=== PATIENT | male | born 1950 | race African-American/Black ===

== ENCOUNTER 2020-03-23 14:25 | Outpatient (CLI) | payer OTHER, SELFPAY ==
--- NOTE | ~2020-03-23 | XR_ITS ---
EXAMINATION: XR chest 2V EXAM DATE: 03/23/2020 14:51 INDICATION: Cough for one month. Chest pain. TECHNIQUE: Frontal and lateral projections of the chest obtained and reviewed. There is no prior dragan dy for comparison. FINDINGS: The lungs are clear. There are no pleural effusions. The cardiomediastinal silhouette is within normal limits. There is no pneumothorax suspected. The bones and soft tissues are unremarkab le. IMPRESSION: No acute cardiopulmonary findings. Reviewed, dictated and finalized at location A.
== END 2020-03-23 14:26 | disposition home or self-care (01) ==
LOC: ANHIMG 14:28
PROVIDERS: PCP Family Medicine; Visit Provider Family Medicine
DX: R07.9 Chest pain, unspecified (principal)
CPT/HCPCS: 71046

== ENCOUNTER 2020-11-12 14:27 | Outpatient (CLI) | payer OTHER, SELFPAY ==
--- NOTE | 2021-01-13 14:53 | WPDPFTINT ---
PFT Interpretation PFT Interpretation: DOS: 11/12/2020 REQUESTING: Dr Sunday Pierce REASON FOR TESTING: shortness of breath PULMONARY FUNCTION TESTS Results are reproducible and reliable Spirometry: FEV1 is 94% predicted, 3.07 L; FVC is 88%; FEV1/FVC is 72%, all normal. The JKV06-24% is 74% which is more borderline decreased. After bronchodilator therapy there is a 34% increase in the FEF 25-75% which is significant. Lung volumes: TLC 84% normal. RV is 67% normal. RV/TLC is 30% normal. Airway resistance 135% mildly increased. Diffusion: DLCO 86% normal. Flow volume loop: Normal. IMPRESSION: This Study shows mild obstructive ventilatory defect in the small airways which is responsive to bronchodilator. Normal lung volumes and diffusion. in the proper clinical setting this pattern may be compatible with asthma. Edith Godoy MD
== END 2020-11-12 14:28 | disposition home or self-care (01) ==
PROVIDERS: PCP Family Medicine; Visit Provider Family Medicine
DX: R06.09 Other forms of dyspnea (principal); R07.89 Other chest pain
CPT/HCPCS: 94060; 94726; 94729

== ENCOUNTER 2021-08-19 00:41 | Day surgery (SDC) | payer OTHER, SELFPAY ==
[2021-08-05 14:45] VITALS: BMI 29.3
[2021-08-19 06:36] VITALS: BP 127/84; PULSE 82; RESP 18; TEMP 35.9; O2SAT 100; BMI 29.1
--- NOTE | 2021-08-19 06:58 | PM.HPGS ---
History of Present Illness History of Present Illness Consent: Risks, benefits, and alternatives have been discussed and questions answered. Patient agrees to proceed with procedure. Chief complaint: hx of colon polyps, neoplasm screening Narrative: Mahendra Hagan is a 70 year old male who is here for colon cancer screening. He had a polyp removed about 6 years ago Review of Systems Review of Systems: All systems reviewed & are unremarkable except as noted in HPI and below PMFSH Past Medical History Medical History Erectile dysfunction HTN (hypertension) Surgical History Surgical History History of appendectomy Family History Family History Father Hypertension Social History Social History Smoking status: Never smoker Second hand tobacco smoke exposure: No Alcohol intake: current Drinks per week: 7 Alcohol use details: 1 glass wine w/ dinner Substance use: never Substance use type: does not use Living arrangements: with family Gender identity (if verbalized by the patient): Male Sexual Orientation (if Verbalized by the Patient): Straight or Heterosexual Spiritual care concerns: No Meds Home Medications and Allergies Home Medications Medication Instructions Recorded Confirmed Type amlodipine 5 mg tablet 5 mg PO DAILY #30 tablet 03/12/21 08/05/21 Rx tadalafil 20 mg tablet 20 mg PO DAILY PRN #6 tablet 03/16/21 03/16/21 Rx Allergies Allergy/AdvReac Type Severity Reaction Status Date / Time codeine AdvReac Severe PASSED OUT Verified 08/19/21 06:53 Vital Signs Vital Signs - 24 hr 08/19/21 06:36 Temperature 35.9 C L Pulse Rate 82 Respiratory Rate 18 Blood Pressure 127/84 Pulse Oximetry 100 Exam Const: General: alert Orientation/consciousness: patient oriented x3 Resp: Auscultation: clear to auscultation bilaterally Cardio: Rhythm: regular rhythm GI: GI Palp: Yes Soft to palpation and No Tenderness to palpation present (GI) Neuro: General: patient oriented x3 Assessment and Plan Assessment and plan (1) Colon cancer screening: Code(s): Z12.11 - Encounter for screening for malignant neoplasm of colon Status: Acute Assessment and Plan: Colonoscopy with possible biopsy or polypectomy or cautery or injection of substances.
[2021-08-19] MEDS: LACTATED RINGERS 1,000 ML 150 ML IV CONT (07:23)
--- NOTE | 2021-08-19 07:24 | WPDANESEPPF ---
Anes - Initial Pre Proc Eval Procedure: Operation Date: 08/19/21 08:00 Proposed Procedures p Screening Colonoscopy - Carmelo Guillen MD Date/Time: 08/19/21 07:24 Surgeon: Carmelo Guillen MD Pre Op Diagnosis: hx of colon polyps, neoplasm screening Patient Data Age: 70 Gender: M Height: 1.85 m Weight: 100.1 kg Last Vital Signs Temp 96.7 F L 08/19/21 06:36 Pulse 82 08/19/21 06:36 Resp 18 08/19/21 06:36 BP 127/84 08/19/21 06:36 Pulse Ox 100 08/19/21 06:36 Allergies Allergy/AdvReac Type Severity Reaction Status Date / Time codeine AdvReac Severe PASSED OUT Verified 08/19/21 06:53 Home Medications Medication Instructions Recorded Confirmed Type amlodipine 5 mg tablet 5 mg PO DAILY #30 tablet 03/12/21 08/05/21 Rx tadalafil 20 mg tablet 20 mg PO DAILY PRN #6 tablet 03/16/21 03/16/21 Rx Patient hx anesthesia problems: none Family hx anesthesia problems: none PMFSH Past Medical History Medical History Erectile dysfunction HTN (hypertension) Surgical History Surgical History History of appendectomy Family History Family History Father Hypertension Social History Social History Smoking status: Never smoker Second hand tobacco smoke exposure: No Alcohol intake: current Drinks per week: 7 Alcohol use details: 1 glass wine w/ dinner Substance use: never Substance use type: does not use Living arrangements: with family Gender identity (if verbalized by the patient): Male Sexual Orientation (if Verbalized by the Patient): Straight or Heterosexual Spiritual care concerns: No Anes - Eval Final PreProcedure Day of Procedure 08/19/21 07:24 Patient weight: overweight Heart: regular rate and rhythm Lungs: clear to auscultation Airway: Mallampati scale Neurological: alert and oriented Last oral intake: >/= 8 hours ASA classification: II Emergent: no Anesthetic plan: proceed Anesthesia type and monitoring: general GIVS and standard monitoring Informed Consent: The patient's anesthetic plan and its attendant risks and benefits were discussed with the patient/family/POA. Questions were solicited and answers provided to the satisfaction of the patient/family/POA.
[2021-08-19 08:19] VITALS: BP 82/67; PULSE 70; RESP 18; O2SAT 97
[2021-08-19 08:29] VITALS: BP 109/71; PULSE 74; RESP 18; O2SAT 98
[2021-08-19 08:39] VITALS: BP 128/88; PULSE 70; RESP 18; O2SAT 100
== END 2021-08-19 09:02 | disposition home or self-care (01) ==
PROVIDERS: PCP Family Medicine; Visit Provider Internal Medicine Gastroenterology
PROC: 0DJD8ZZ Inspection of Lower Intestinal Tract, Via Natural or Artificial Opening Endoscopic (ICD-10-PCS; CPT 45378; principal; 2021-08-19 08:00)
DX: Z12.11 Encounter for screening for malignant neoplasm of colon (principal); D12.5 Benign neoplasm of sigmoid colon; D12.0 Benign neoplasm of cecum; K57.30 Diverticulosis of large intestine without perforation or abscess without bleeding; I10 Essential (primary) hypertension
CPT/HCPCS: 45385; 45380; 88305; J2001; J2704; J7120

== ENCOUNTER 2023-07-11 13:29 | Emergency (ER) | payer OTHER, SELFPAY ==
[2023-07-11] VITALS (21 sets, daily range): BP systolic 152–185; BP diastolic 98–119; PULSE 59–86; RESP 12–28; TEMP 36.6; O2SAT 84–100
--- NOTE | ~2023-07-11 | XR_ITS ---
EXAMINATION: XR chest 2V DATE: 07/11/2023 14:01 INDICATION: Shortness of breath and chest tightness TECHNIQUE: PA and lateral views of the chest were obtained. COMPARISON: Chest radiograph dated 03/23/2020 FINDINGS: Unchanged mild linear discoid atelectasis/scarring at the bilateral costophrenic angles. No other air space opacities, pulmonary edema, pleural effusion or pneumothorax. The cardiomediastinal silhouette is normal. Mild thoracolumbar dextrocurvature and moderate thoracic spondylosis. IMPRESSION: 1. No acute cardiopulmonary disease. Reviewed, dictated and finalized at location A.
--- NOTE | 2023-07-11 13:43 | ECG_ITS ---
Measurements Intervals [place] Rate: 75 P: 24 IN: 193 QRS: -34 QRSD: 100 T: 4 QT: 362 QTc: 404 Interpretive Statements SINUS RHYTHM MARKED LEFT AXIS DEVIATION [QRS AXIS < -30] PATTERN CONSISTENT WITH PULMONARY DISEASE MODERATE VOLTAGE CRITERIA FOR LVH, CONSIDER NORMAL VARIANT [MEETS CRITERIA IN ONE OF: R(aVL), S(V1), R(V5), R(V5/V6)+S(V1)] NO PREVIOUS ECG AVAILABLE FOR COMPARISON Electronically Signed On 07-11-2023 14:42:17 CDT by Eusebio Lew M.D.
--- NOTE | 2023-07-11 13:47 | ED.GENADULT ---
[facility] - General Adult General Chief complaint: Chest Pain Stated complaint: resolved cp, sob Time Seen by Provider: 07/11/23 13:42 Source: patient Mode of arrival: EMS Limitations: no limitations History of Present Illness HPI narrative: This is a 72-year-old male who presents to the ED via EMS with chief complaint of chest pain onset earlier today after walking up and down the stairs in his home. He states he started to have a little bit of central chest pain and shortness of breath at that time. He also reports bilateral hand take and mouth tingling. He called EMS who recommended he come to the emergency department to be evaluated, however he said he states shortly after being seen by the EMS personnel his symptoms started to resolve. He states he is now currently largely symptom-free, however he still feels a little bit of pressure in the chest. Endorses associated nausea at the time that has also since resolved. Denies LOC, vomiting. Denies fevers, chills, cough, recent illness, abdominal pain, diarrhea. Related Data Home Medications Medication Instructions Recorded Confirmed sildenafil 50 mg tablet 50 mg PO DAILY PRN 12/16/21 03/22/23 Allergies Allergy/AdvReac Type Severity Reaction Status Date / Time codeine AdvReac Severe PASSED OUT Verified 03/22/23 09:19 Review of Systems Review of Systems: All systems as dictated in [facility] Past Medical History Medical History Erectile dysfunction HTN (hypertension) Surgical History Surgical History History of appendectomy Family History Family History Father Hypertension Social History Social History Smoking status: Never smoker Second hand tobacco smoke exposure: No Alcohol intake: current Drinks per week: 7 Alcohol use details: 1 glass wine w/ dinner Substance use: never Substance use type: does not use Living arrangements: with family Occupation/Education: retired Gender identity (if verbalized by the patient): Male Sexual Orientation (if Verbalized by the Patient): Straight or Heterosexual Spiritual care concerns: No Exam Narrative: GENERAL: Well-appearing, well-nourished, and in no acute distress. HEAD: Normocephalic, atraumatic. EYES: PERRLA and EOMI. ENT: Nares clear, no rhinorrhea or epistaxis. Mucous membranes moist. Oropharynx without tonsillar hypertrophy exudate or other lesions. NECK: Supple. No adenopathy or masses. CHEST: No respiratory distress. Clear to auscultation. No wheezes rales or rhonchi HEART: Regular rate and rhythm. No murmur heard. Normal peripheral pulses. ABDOMEN: Soft, nontender, nondistended, normal active bowel sounds. MSK: Normal range of motion. No edema. SKIN: Warm, dry, no rash. NEURO: Alert and oriented x3. No focal deficits. PSYCH: Normal mood and affect. Course Course Emergency Course: Reevaluation 1716: Patient again repeats that he is symptom-free. He did not have any more episodes of chest pain. I offered admission for chest pain but he states he is feeling better and would like to go home with his negative work-up here in the department. Vital Signs Vital signs: Vital Signs Temperature 97.8 F 07/11/23 13:35 Pulse Rate 82 07/11/23 13:35 Respiratory Rate 18 07/11/23 13:35 Blood Pressure 185/112 H 07/11/23 13:35 Pulse Oximetry 100 07/11/23 13:35 Oxygen Delivery Room Air 07/11/23 13:35 Temperature 97.8 F 07/11/23 13:35 Pulse Rate 86 07/11/23 17:30 Respiratory Rate 16 07/11/23 17:30 Blood Pressure 152/98 H 07/11/23 17:30 Pulse Oximetry 98 07/11/23 17:30 Oxygen Delivery Room Air 07/11/23 13:51 Medical Decision Making MDM Narrative Medical decision making narrative: This is a 72-year-old male who presen
--- NOTE | 2023-07-11 14:00 | PC.NURSE ---
pt resting quietly on stretcher. pt continues to deny cp. waiting lab results.
[2023-07-11 14:29] LABS: Basophils Percent Auto 0.3 % (0.2-1.2); Eosinophils Absolute Auto 0.1 K/mm3 (0-0.3); Eosinophils Percent Auto 2.3 % (0-4.4); Hematocrit 36.3 % (42.0-52.0); Immature Granulocyte Absolute 0.01 K/mm3 (0.00-0.031); Immature Granulocyte Percent A 0.2 % (0-0.5); Lymphocytes Absolute Auto 1.54 K/mm3 (0.9-3.2); Mean Corpuscular HGB Conc 35.8 g/dl (32-36); Mean Corpuscular Hemoglobin 29.6 pg (26-34); Mean Corpuscular Volume 82.7 fl (80-100); Mean Platelet Volume 12.2 fl (7.4-10.4); Monocytes Absolute Auto 0.6 K/mm3 (0.1-0.6); Monocytes Percent Auto 8.9 % (2.6-8.5); Neutrophils Absolute Auto 3.9 K/mm3 (1.3-6.7); Neutrophils Percent Auto 63.3 % (45.5-73.1); Platelet Count Result 137 k/mm3 (150-375); Red Blood Count 4.39 M/mm3 (4.6-6.20); Red Cell Distribution Width 13.7 % (11.5-14.5); White Blood Count 6.2 K/mm3 (4.5-10.0)
[2023-07-11 14:36] LABS: Alanine Aminotransferase 16 U/L (6-50); Albumin Level 4.2 g/dL (3.5-5.1); Alkaline Phosphatase 70 U/L (38-126); Anion Gap 10 mmol/L (8-16); Aspartate Amino Transferase 25 U/L (17-59); Bilirubin,Total 0.4 mg/dL (0.2-1.3); Blood Urea Nitrogen 16 mg/dL (9-20); Calcium 8.7 mg/dL (8.4-10.2); Carbon Dioxide 27 mmol/L (22-30); Chloride 101 mmol/L (98-107); Estimated CRCL calculation 61 ml/min; Estimated Glomerular Filt Rate > 60; Glucose 96 mg/dL (65-110); Lipase 55 U/L (23-300); Sodium 138 mmol/L (137-145)
[2023-07-11 14:37] LABS: Prothrombin Time 13.7 Seconds (11.1-14.7)
[2023-07-11 14:38] LABS: Partial Thromboplastin Time 29.4 SECONDS (22.3-36.8)
[2023-07-11 14:48] LABS: Troponin I < 0.012 ng/mL (0.000-0.034)
[2023-07-11 15:00] LABS: D Dimer 0.48 ug/mL (<0.48)
--- NOTE | 2023-07-11 16:30 | PC.NURSE ---
repeat troponin drawn. pt c/o again feeling flushed all over. no change noted on monitoring and evaluation advisor.
[2023-07-11 17:08] LABS: Troponin I < 0.012 ng/mL (0.000-0.034)
== END 2023-07-11 17:30 | disposition home or self-care (01) ==
PROVIDERS: Emergency Provider Physician Assistant; PCP Family Medicine
DX: R07.89 Other chest pain (principal); I10 Essential (primary) hypertension; R94.31 Abnormal electrocardiogram [ECG] [EKG]
CPT/HCPCS: 36415; 71046; 80053; 83690; 84484; 85025; 85380; 85610; 85730; 93005; 99284

== ENCOUNTER 2025-07-26 14:01 | Observation (INO) | payer OTHER, SELFPAY ==
[2025-07-26] VITALS (17 sets, daily range): BP systolic 117–166; BP diastolic 73–99; PULSE 67–84; RESP 14–19; TEMP 36.6–37; O2SAT 97–100; BMI 27.8
--- NOTE | ~2025-07-26 | CT_ITS ---
EXAMINATION: CT brain wo ashvin, 07/26/2025 14:40 CDT HISTORY: Syncope COMPARISON: No comparisons available. Technique: Axial images obtained of the brain without contrast. One or more of the following dose reduction techniques were used: automated exposure control, adjustment of the mA and/or kV according to patient size, use of iterative reconstruction technique. Findings: No acute infarct or parenchymal hemorrhage. No abnormal mass or mass effect. No midline shift. No extra-axial fluid collections. No hydrocephalus. Mastoid air cells unremarkable. Sinuses and orbits unremarkable. No acute fracture. No significant facial or scalp soft tissue swelling evident. No radiopaque foreign body is seen. Impression: 1.No acute intracranial abnormality. Reviewed, dictated and finalized at location A. Impression: 1.No acute intracranial abnormality.
--- NOTE | ~2025-07-26 | XR_ITS ---
EXAMINATION: XR chest 1V, 07/26/2025 14:58 CDT HISTORY: Syncope COMPARISON: No comparisons available. Technique: Single view. Findings: The lungs are clear, no effusion. No pneumothorax. Heart is normal size. Mediastinal and hilar contours are within normal limits. Bony thorax no acute abnormality. Impression: No acute cardiopulmonary abnormality. Reviewed, dictated and finalized at location A. Impression: No acute cardiopulmonary abnormality.
--- OUTSIDE RECORDS SUMMARY | 2025-07-26 14:04 | XMS_ITS | Clinical Summary ---
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 Gender Identity Not on file Sexual Orientation Not on file Plan of Treatment Health Maintenance Due Date Last Done Comments Hepatitis C Virus (HCV) Screening 1950 TdaP Immunization 1950 Cologuard 1995 Colonoscopy 1995 Colorectal Cancer Screening 1995 Immunochemical Fecal Occult Blood 1995 Pneumococcal Immunization (50+ years) (1 of 1 - PCV) 2000 SARS-COV-2 Immunization ( season) 2024 09/25/2021, 02/15/2021, 01/14/2021 Influenza Immunization (#1) 07/28/202508/29, 08/08/2020, 09/23/2019, Additional history exists Respiratory Syncytial Virus (RSV) Immunization (Adult) (1 - 1-dose 75+ series) 2025 Zoster Immunization Completed 11/21/2020, 0 Hepatitis B Immunization Aged Out No longer eligible based on patient's age to complete this topic Human Papillomavirus (HPV) Immunization Aged Out No longer eligible based on patient's age to complete this topic Meningococcal Immunization (ACWY) Aged Out No longer eligible based on patient's age to complete this topic Rotavirus Immunization Aged Out No lo nger eligible based on patient's age to complete this topic
--- OUTSIDE RECORDS SUMMARY | 2025-07-26 14:04 | XMS_ITS | Clinical Summary ---
Author Organization [facility] Address [address] [place] [id number] Care Team Providers Care Engineer Intern Name Role Phone Sunday Pierce MD Primary Care Provider Allergies Active Allergy Reactions Criticality Noted Date Comments Codeine Syncope,Nausea only High 06/15/2020 Medications amLODIPine (NORVASC) 5 mg tablet Take 5 mg by mouth daily Active tadalafiL (CIALIS) 20 mg tablet Take 20 mg by mouth daily as needed for erectile dysfunction Active Active Problems Problem Noted Date Diagnosed Date Chronic fatigue 06/15/2020 NSVT (nonsustained ventricular tachycardia) 05/28 Abnormal stress test 06/15/2020 HTN (hypertension), benign 06/15/2020 Chest pain 06/15/2020 PVC's (premature ventricular contractions) 06/15 Surgical History Surgery Date Site/Laterality Comments APPENDECTOMY Medical History Medical History Date Comments Hypertension Asthma Family History Medical History Relation Name Comments Hypertension Father Hypertension Mother Relation Name Status Comments Father (Age 93) Mother (Age 87) Social History Tobacco Use Types Packs/Day Years Used Date Smoking Tobacco: Never Smokeless Tobacco: Never Alcohol Use Standard Drinks/Week Comments Yes 0 (1 standard drink = 0.6 oz pur e alcohol) rarely Personal Safety Answer Date Recorded Getting School Help Needed Not on file 02/08 Sex and Gender Information Value Date Recorded Sex Assigned at Not on file 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 Gender Identity Not on file Sexual Orientation Not on file Obstetrics History Last Filed Vital Signs Vital Sign Reading Time Taken Comments Blood Pressure 136/80 12/01/2020 8:26 AM FROZEN PIE MAKER Pulse 81 12/01/2020 8:26 AM FROZEN PIE MAKER Temperature 36.7 C (98 F) 08/06/2020 1:58 PM CDT Respiratory Rate - - Oxygen Saturation 96% 12/01/2020 8:26 AM FROZEN PIE MAKER Inhaled Oxygen Concentration - - Weight 102.7 kg (226 lb 6.4 oz) 12/01/2020 8:26 AM FROZEN PIE MAKER Height 185.4 cm (6' 1) 12/01/2020 8:26 AM FROZEN PIE MAKER Body Mass Index 29.87 12/01/2020 8:26 AM FROZEN PIE MAKER Plan of Treatment Not on file Insurance [employer] [facility] Care Teams Engineer Intern Relationship Specialty Start Date End Date Sunday Pierce MD [address] [facility] [address] [place] [address] PCP - General Family Medicine 06/04/20
--- NOTE | 2025-07-26 14:21 | ED_ITS ---
HPI - Syncope General Chief Complaint: Syncope Stated Complaint: SYNCOPAL EPISODE Time Seen by Provider: 07/26/25 14:20 Source: patient and family Mode of arrival: ambulatory Limitations: no limitations History of Present Illness HPI narrative: 74 years old male came to the ED by private car because of a syncope. His is telling me that patient was sitting suddenly broke out in sweat, and became unresponsive, patient kept call his name over and over without response lasted roughly 1 minute. Patient does not remember what happened, currently asymptomatic except feeling a little tired. He denies any fever, chills, nausea, vomiting, headache, chest pain, shortness of breath, palpitation, lightheadedness or dizziness prior to syncope. Patient used to be on 50 mg of sildenafil as needed, started on 100 mg recently, been using that as needed for the last 4 weeks. Today patient received 1 dose at 6:30 a.m. in the morning, at 11:00 a.m. had syncope Hip history of hypertension. Patient does not smoke or drink or use drugs Related Data Allergies Allergy/AdvReac Type Severity Reaction Status Date / Time codeine AdvReac Severe PASSED OUT Verified 05/27/25 10:15 Review of Systems 2 Review of Systems: All systems reviewed & are unremarkable except as noted in HPI and below PMFSH Past Medical History Medical History Non-sustained ventricular tachycardia PVCs (premature ventricular contractions) Erectile dysfunction HTN (hypertension) Surgical History Surgical History History of appendectomy Family History Family History Father Hypertension Social History Social History Smoking status: Never smoker Second hand tobacco smoke exposure: No Alcohol intake: current Drinks per week: 7 Alcohol use details: 1 glass wine w/ dinner Substance use: never Substance use type: does not use Living arrangements: with family Occupation/Education: retired Gender identity (if verbalized by the patient): Male Sexual Orientation (if Verbalized by the Patient): Straight or Heterosexual Spiritual care concerns: No Exam 2 Narrative: General appearance: Well-developed, well-nourished Skin: Normal color Head: Normocephalic, nontraumatic Eyes: Clear conjunctiva ENT: Oropharynx normal, ears normal, nose normal Neck: Supple, nontender Chest and respiratory: Airway patent, no respiratory distress, no accessory muscle use Heart: Regular rate/rhythm Abdomen: Soft, nontender, no organomegaly, quiet bowel sounds Vascular: Normal peripheral pulses, normal capillary refill. Musculoskeletal: Normal range of motion, nontender back Neurologic: Alert and oriented ?3, CLASSIFICATION INSPECTOR is normal as tested, no gross motor deficit Course Vital Signs Vital signs: Vital Signs Temperature 36.6 C 07/26/25 14:47 Pulse Rate 78 07/26/25 14:47 Respiratory Rate 16 07/26/25 14:47 Blood Pressure 117/73 07/26/25 14:47 Pulse Oximetry 99 07/26/25 14:47 Oxygen Delivery Room Air 07/26/25 14:47 Temperature 36.6 C 07/26/25 14:47 Pulse Rate 78 07/26/25 14:47 Respiratory Rate 16 07/26/25 14:47 Blood Pressure 117/73 07/26/25 14:47 Pulse Oximetry 99 07/26/25 14:47 Oxygen Delivery Room Air 07/26/25 14:47 MDM - Syncope MDM Narrative Medical decision making narrative: Patient came to the ED with syncope, had Viagra roughly 3 hours prior to syncope Vital signs are stable Physical examination is unremarkable Differential diagnosis is syncope secondary to hypotension secondary to Viagra, electrolyte imbalance, dehydration, cardiac arrhythmia Blood workup today includes CBC, CMP, TSH, CPK, troponin showed insignificant abnormality Chest x-ray showed no acute abnormality, CT head without contrast showed no acute abnormality EKG on arrival showed normal sinus rhythm, no acute abnormalities Diagnosis syncope Admit to hospitalist Differential Diagnosis Differential diagnosis: Likely other (As above) Medical Records Attestation: I reviewed the patient's medical records. Lab Data Attestation: I reviewed the patient's lab results. 07/26/25 14:48 07/26/25 14:48 Labs: Lab Results 07/26/25 Range/Units 14:48 WBC 8.8 (4.5-10.0) K/mm3 RBC 4.28 L (4.6-6.20) M/mm3 Hgb 12.4 L (14.0-18.0) g/dL Hct 34.5 L (42.0-52.0) % MCV 80.6 (80-100) fl MCH 29.0 (26-34) pg MCHC 35.9 (32-36) g/dl RDW 13.8 (11.5-14.5) % Plt Count 144 L (150-375) k/mm3 MPV 12.2 H (7.4-10.4) fl Immature Gran % (Auto) 0.3 (0-0.5) % Neut % (Auto) 82.2 H (45.5-73.1) % Lymph % (Auto) 11.1 L (18.3-44.2) % [place] % (Auto) 5.7 (2.6-8.5) % Eos % (Auto) 0.5 (0-4.4) % Baso % (Auto) 0.2 (0.2-1.2) % Lymph # (Auto) 0.98 (0.9-3.2) K/mm3 [place] # (Auto) 0.5 (0.1-0.6) K/mm3 Eos # (Auto) 0.0 (0-0.3) K/mm3 Baso # (Auto) 0.0 (0.0-0.1) K/mm3 Abs Immat Gran (auto) 0.03 (0.00-0.031) K/mm3 Absolute Neuts (auto) 7.3 H (1.3-6.7) K/mm3 Absolute Nucleated RBC 0.000 (0.0-0.012) K/mm3 Nucleated RBC % 0.0 (0.0-0.2) % PT 13.9 (11.1-14.7) Seconds INR 1.1 APTT 24.6 (22.3-36.8) Seconds Sodium 135 L (137-145) mmol/L Potassium 4.1 (3.4-5.0) mmol/L Chloride 103 (98-107) mmol/L Carbon Dioxide 27 (22-30) mmol/L Anion Gap 5 (4-12) mmol/L BUN 20 (9-20) mg/dL Creatinine 1.36 H (0.7-1.3) mg/dL Estim Creat Clear Calc 50 ml/min Estimated GFR 51 L (59 - ) Glucose 99 (65-110) mg/dL Calcium 9.2 (8.4-10.2) mg/dL Total Bilirubin 0.4 (0.2-1.3) mg/dL AST 27 (17-59) U/L ALT 14 (6-50) U/L Alkaline Phosphatase 64 (38-126) U/L Total Creatine Kinase 174 H (55-170) U/L Troponin I < 0.012 (0.000-0.034) ng/mL Total Protein 7.6 (6.3-8.2) g/dL Albumin 4.0 (3.5-5.1) g/dL TSH Pending Imaging Data Radiologist's impression: Impressions Head CT 07/26/25 15:04 Impression: 1.No acute intracranial abnormality. Chest X-Ray 07/26/25 15:07 Impression: No acute cardiopulmonary abnormality. ECG Data EKG #1: Attestation: I personally reviewed and interpreted this ECG as follows: ECG completion date: 07/26/25 Prior ECG tracings: not available for review Interpretation: Normal sinus rhythm at 76 beats per minute, left axis deviation, pattern consistent with pulmonary disease. Nonspecific T-wave abnormality, no previous EKG available for comparison Critical Care Time Critical Care Time Critical Care Time: No Discharge Plan Discharge Clinical Impression: Syncope Patient Disposition: Still a Patient Condition: Improved Patient Language: Hungarian Prescriptions: No Action sildenafil [Viagra] 100 mg tablet 100 mg PO DAILY PRN (Reason: sexual activity) Qty: 30 1RF Rx Instructions: administer 30 minutes to 4 hours before activity amlodipine 10 mg tablet 10 mg PO DAILY Qty: 90 3RF Follow-up/Referrals: Sunday Pierce MD [Primary Care Provider, [facility]]
--- NOTE | 2025-07-26 14:24 | ECG_ITS ---
Test Date: 2025-07-26 14:32:18 Measurements Intervals [place] Rate: 76 P: 26 [place]: 177 QRS: -33 QRSD: 98 T: 5 QT: 400 QTc: 452 Interpretive Statements SINUS RHYTHM LEFT AXIS DEVIATION PATTERN CONSISTENT WITH PULMONARY DISEASE VOLTAGE CRITERIA FOR LVH NONSPECIFIC T-WAVE ABNORMALITY- ANT/INF LEADS BORDERLINE ECG No previous ECG available for comparison Electronically Signed On 07-26-2025 15:38:48 CDT by Kishore Tierney D.O.
--- OUTSIDE RECORDS SUMMARY | 2025-07-26 14:37 | XMS_ITS | Clinical Summary ---
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 Gender Identity Not on file Sexual Orientation Not on file Obstetrics History Last Filed Vital Signs Vital Sign Reading Time Taken Comments Blood Pressure 136/80 12/01/2020 8:26 AM SUPERINTENDENT PIER Pulse 81 12/01/2020 8:26 AM SUPERINTENDENT PIER Temperature 36.7 C (98 F) 08/06/2020 1:58 PM CDT Respiratory Rate - - Oxygen Saturation 96% 12/01/2020 8:26 AM SUPERINTENDENT PIER Inhaled Oxygen Concentration - - Weight 102.7 kg (226 lb 6.4 oz) 12/01/2020 8:26 AM SUPERINTENDENT PIER Height 185.4 cm (6' 1) 12/01/2020 8:26 AM SUPERINTENDENT PIER Body Mass Index 29.87 12/01/2020 8:26 AM SUPERINTENDENT PIER Plan of Treatment Not on file Insurance [employer] [facility] Care Teams Manager Progressive Care Relationship Specialty Start Date End Date Sunday Pierce MD [address] [facility] [address] [place] [address] PCP - General Family Medicine 06/04/20
--- OUTSIDE RECORDS SUMMARY | 2025-07-26 14:37 | XMS_ITS | Clinical Summary ---
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
[2025-07-26 14:53] LABS: Hematocrit 34.5 % (42.0-52.0); Hemoglobin 12.4 g/dL (14.0-18.0); Immature Granulocyte Percent A 0.3 % (0-0.5); Lymphocytes Absolute Auto 0.98 K/mm3 (0.9-3.2); Mean Corpuscular HGB Conc 35.9 g/dl (32-36); Mean Corpuscular Hemoglobin 29.0 pg (26-34); Mean Corpuscular Volume 80.6 fl (80-100); Nucleated Red Blood Cells Absolute Auto 0.000 K/mm3 (0.0-0.012); Nucleated Red Blood Cells Perc 0.0 % (0.0-0.2); Platelet Count Result 144 k/mm3 (150-375); Red Blood Count 4.28 M/mm3 (4.6-6.20); White Blood Count 8.8 K/mm3 (4.5-10.0)
[2025-07-26 15:05] LABS: INR 1.1; Partial Thromboplastin Time 24.6 Seconds (22.3-36.8); Prothrombin Time 13.9 Seconds (11.1-14.7)
[2025-07-26 15:07] LABS: Alanine Aminotransferase 14 U/L (6-50); Albumin Level 4.0 g/dL (3.5-5.1); Alkaline Phosphatase 64 U/L (38-126); Anion Gap 5 mmol/L (4-12); Aspartate Amino Transferase 27 U/L (17-59); Bilirubin,Total 0.4 mg/dL (0.2-1.3); Blood Urea Nitrogen 20 mg/dL (9-20); Calcium 9.2 mg/dL (8.4-10.2); Carbon Dioxide 27 mmol/L (22-30); Chloride 103 mmol/L (98-107); Creatine Kinase 174 U/L (55-170); Estimated CRCL calculation 50 ml/min; Estimated Glomerular Filt Rate 51; Glucose 99 mg/dL (65-110); Potassium 4.1 mmol/L (3.4-5.0); Sodium 135 mmol/L (137-145); Total Protein 7.6 g/dL (6.3-8.2)
[2025-07-26 15:19] LABS: Troponin I < 0.012 ng/mL (0.000-0.034)
[2025-07-26 15:38] LABS: Thyroid Stimulating Hormone 1.720 uIU/mL (0.465-4.680)
[2025-07-26 15:41] LABS: Add Urine Microscopic? NO; Appearance Urine Clear (Clear); Glucose Urine UA Negative (Negative); Leukocyte Esterase Ur Negative LEU/UL (Negative); Nitrate Urine Negative (Negative); Specific Grav Ur 1.021 (1.001-1.035)
--- NOTE | 2025-07-26 15:56 | P.HP_ITS ---
H&P: HPI History of Present Illness Date/Time: 07/26/25 15:56 Chief Complaint: Syncope Narrative: 74-year-old male past medical history of hypertension presents the hospital with syncope. Patient states that both him and his for of early in the decided to have intercourse so he took his Viagra. After that they had breakfast any took his blood pressure medication. Per the patient's he was sitting when he suddenly gotten sweats became unresponsive. Patient states a recently had his dose of Viagra increased. Patient currently denies any symptoms. Lab work in the ED shows hemoglobin of 12.4, sodium of 135 creatinine 1.36, GFR 51 CK 174, troponin negative, UA negative for infection. CT head negative for acute process. Chest x-ray negative for acute process. EKG shows sinus rhythm. Review of Systems Review of Systems: 12 systems were reviewed and are negativ e except for as per HPI. [facility] Past Medical History Medical History Non-sustained ventricular tachycardia PVCs (premature ventricular contractions) Erectile dysfunction HTN (hypertension) Surgical History Surgical History History of appendectomy Family History Family History Father Hypertension Social History Social History Smoking status: Never smoker Second hand tobacco smoke exposure: No Alcohol intake: never Drinks per week: 7 Alcohol use details: 1 glass wine w/ dinner Substance use: never Substance use type: does not use Lack of Transportation: No Lack of Food: Never True Current Housing: I Have Housing Concerned About Future Housing: No Difficulty Paying Gas/Electric Bills: No Difficulty Paying for Meds: No Currently Unemployed: No Education: Bachelor's Degree Difficulty w/ Childcare or Family Care: No Living arrangements: with family Occupation/Education: retired Gender identity (if verbalized by the patient): Male Sexual Orientation (if Verbalized by the Patient): Straight or Heterosexual Spiritual care concerns: No Meds Home Medications and Allergies Home Medications ?Medication ?Instructions ?Recorded ?Confirmed ?Type sildenafil 100 mg tablet (Viagra) 100 mg PO DAILY PRN sexual 03/10/25 07/26/25 Rx activity #30 tabs amlodipine 10 mg tablet 10 mg PO DAILY #90 tabs 12/2107/26/25 Rx Allergies Allergy/AdvReac Type Severity Reaction Status Date / Time codeine AdvReac Severe PASSED OUT Verified 05/27/25 10:15 Vital Signs Vital Signs - 24 hr 07/26/25 14:47 Temperature 97.9 F Pulse Rate 78 Respiratory Rate 16 Blood Pressure 117/73 Pulse Oximetry 99 Oxygen Delivery Room Air Exam Narrative: General: well appearing, appears stated age. HEENT: normocephalic, atraumatic. Mucous membranes moist. EOMI, PERRLA, bilateral sclera anicteric, no conjunctival injection. Neck supple without JVD, lymphadenopathy, or bruit. Respiratory: clear to ascultation bilaterally. No rales/rhonic/wheezes. Cardiovascular: Regular rate and rhythm, normal S1-S2 upon ascultation. No murmurs, rubs, or clicks. PMI is nondisplaced, capillary refill less than 3 second. Abdomen: Soft, round, no pulsatile masses, nondistended and nontender. No rebound, no guarding. No CVA tenderness, no hepatosplenomegaly. Bowel sounds present to all four quadrants. No high pitch or tinkling sounds, resonant to percussion. Extremities: No cyanosis, clubbing, or edema present. Pulses are palpable 2/2. Active ROM to all four extremities. Neuro: Alert and orientated x 4. PERRLA. Cranial nerves 2-12 intact without focal deficit. Skin: Warm, dry, and intact, without rash, erythema, or lesion. Psych: pleasant, cooperative, normal speech, normal affect, no hallucinations, no dysarthia H&P: Results Labs Labs: Short CBC 07/26/25 Range/Units 14:48 WBC 8.8 (4.5-10.0) K/mm3 Hgb 12.4 L (14.0-18.0) g/dL Hct 34.5 L (42.0-52.0) % Plt Count 144 L (150-375) k/mm3 BMP 07/26/25 14:48 Sodium 135 L Potassium 4.1 Chloride 103 Carbon Dioxide 27 BUN 20 Creatinine 1.36 H Glucose 99 Calcium 9.2 Cardiac Enzymes 07/26/25 Range/Units 14:48 Total Creatine Kinase 174 H (55-170) U/L Troponin I < 0.012 (0.000-0.034) ng/mL Liver Function 07/26/25 Range/Units 14:48 Total Bilirubin 0.4 (0.2-1.3) mg/dL AST 27 (17-59) U/L ALT 14 (6-50) U/L Alkaline Phosphatase 64 (38-126) U/L Albumin 4.0 (3.5-5.1) g/dL Urine 07/26/25 Range/Units 15:34 Urine Color Yellow (Yellow) Urine Appearance Clear (Clear) Urine pH 5.5 (5.0-9.0) Ur Specific [place] 1.021 (1.001-1.035) Urine Protein Negative (Negative) mg/dL Urine Glucose (UA) Negative (Negative) mg/dL Assessment and Plan Assessment and plan (1) Syncope: Code(s): R55 - Syncope and collapse Status: Acute Assessment and Plan: Could be due to increased dose of Viagra versus taking Viagra with hypertension medications Telemetry monitoring Fluid hydration Orthostatic vital signs (2) HTN (hypertension): Qualifiers: Hypertension type: primary hypertension Qualified Code(s): I10 - Essential (primary) hypertension Code(s): I10 - Essential (primary) hypertension Status: Acute Assessment and Plan: Hold amlodipine (3) Erectile dysfunction: Qualifiers: Erectile dysfunction type: unspecified Qualified Code(s): N52.9 - Male erectile dysfunction, unspecified Code(s): N52.9 - Male erectile dysfunction, unspecified Status: Acute Assessment and Plan: Patient educated not to take antihypertensives within a 4 hour window of Viagra Quality VTE Prophylaxis VTE prophylaxis: mechanical ordered Hospitalist MIPS Advance Care Plan I have confirmed that the patient's Advanced Care Plan is present, code status is documented, or surrogate decision maker is listed in patient medical record.: Yes Medication Reconciliation I have utilized all available resources to obtain, update and review the patients current medications (includes all prescriptions, OTC, herbals, cannabis, and nutritional supplements).: Yes
[2025-07-26 15:57] LABS: Cannabinoid Screen Urine Negative (Negative)
[2025-07-26] MEDS: SODIUM CHLORIDE 0.45% 1,000 ML 100 ML IV CONT (16:40)
--- NOTE | 2025-07-26 17:05 | ADMGEN ---
This patient, Mahendra Hagan, was admitted to IMU Room 204-01. Patient/family oriented to hospital policies and general routines including ID bracelet, bed and alarms, visiting hours, pain management, procedures, bathroom and other care routines, personal items, smoking policy, room service/diet, and visiting hours. Information on how to activate the Rapid Response Team has been discussed. Patient/Family are encouraged to report perceived risks to care and to ask questions if they do not understand what they are told or what they should do.
[2025-07-27] VITALS (9 sets, daily range): BP systolic 129–151; BP diastolic 77–93; PULSE 57–84; RESP 14–16; TEMP 36.3–36.6; O2SAT 98–100
[2025-07-27] MEDS: SODIUM CHLORIDE 0.45% 1,000 ML 100 ML IV CONT (02:58)
[2025-07-27 04:07] LABS: Hematocrit 34.0 % (42.0-52.0); Hemoglobin 11.9 g/dL (14.0-18.0); Immature Granulocyte Percent A 0.3 % (0-0.5); Lymphocytes Absolute Auto 1.51 K/mm3 (0.9-3.2); Mean Corpuscular HGB Conc 35.0 g/dl (32-36); Mean Corpuscular Hemoglobin 29.2 pg (26-34); Mean Corpuscular Volume 83.3 fl (80-100); Nucleated Red Blood Cells Absolute Auto 0.000 K/mm3 (0.0-0.012); Nucleated Red Blood Cells Perc 0.0 % (0.0-0.2); Platelet Count Result 118 k/mm3 (150-375); Red Blood Count 4.08 M/mm3 (4.6-6.20); White Blood Count 5.7 K/mm3 (4.5-10.0)
[2025-07-27 04:30] LABS: Anion Gap 5 mmol/L (4-12); Blood Urea Nitrogen 15 mg/dL (9-20); Calcium 8.9 mg/dL (8.4-10.2); Carbon Dioxide 23 mmol/L (22-30); Chloride 108 mmol/L (98-107); Estimated CRCL calculation 64 ml/min; Estimated Glomerular Filt Rate > 60; Glucose 92 mg/dL (65-110); Potassium 4.0 mmol/L (3.4-5.0); Sodium 136 mmol/L (137-145)
--- NOTE | 2025-07-27 09:03 | P.PNIM_ITS ---
Progress Note: A&P Assessment and Plan (1) Syncope: Code(s): R55 - Syncope and collapse Status: Acute Assessment and Plan: Could be due to increased dose of Viagra versus taking Viagra with hypertension medications Telemetry monitoring Fluid hydration Orthostatic vital signs (2) HTN (hypertension): Qualifiers: Hypertension type: primary hypertension Qualified Code(s): I10 - Essential (primary) hypertension Code(s): I10 - Essential (primary) hypertension Status: Acute Assessment and Plan: Hold amlodipine (3) Erectile dysfunction: Qualifiers: Erectile dysfunction type: unspecified Qualified Code(s): N52.9 - Male erectile dysfunction, unspecified Code(s): N52.9 - Male erectile dysfunction, unspecified Status: Acute Assessment and Plan: Patient educated not to take antihypertensives within a 4 hour window of Viagra Subjective Date/time seen: 07/27/25 09:03 Review of Systems Review of Systems: 12 systems were reviewed and are negativ e except for as per HPI. Exam Narrative: General: well appearing, appears stated age. HEENT: normocephalic, atraumatic. Mucous membranes moist. EOMI, PERRLA, bilateral sclera anicteric, no conjunctival injection. Neck supple without JVD, lymphadenopathy, or bruit. Respiratory: clear to ascultation bilaterally. No rales/rhonic/wheezes. Cardiovascular: Regular rate and rhythm, normal S1-S2 upon ascultation. No murmurs, rubs, or clicks. PMI is nondisplaced, capillary refill less than 3 second. Abdomen: Soft, round, no pulsatile masses, nondistended and nontender. No rebound, no guarding. No CVA tenderness, no hepatosplenomegaly. Bowel sounds present to all four quadrants. No high pitch or tinkling sounds, resonant to percussion. Extremities: No cyanosis, clubbing, or edema present. Pulses are palpable 2/2. Active ROM to all four extremities. Neuro: Alert and orientated x 4. PERRLA. Cranial nerves 2-12 intact without focal deficit. Skin: Warm, dry, and intact, without rash, erythema, or lesion. Psych: pleasant, cooperative, normal speech, normal affect, no hallucinations, no dysarthia Objective Data Vital Signs Vital Signs: Vital Signs - 24 hr 07/26/25 14:22 07/26/25 14:23 07/26/25 14:30 Temperature Pulse Rate 78 76 80 Respiratory Rate 17 15 16 Blood Pressure 125/76 Pulse Oximetry 99 99 Oxygen Delivery 07/26/25 14:31 07/26/25 14:45 07/26/25 14:46 Temperature Pulse Rate 78 76 76 Respiratory Rate 19 17 18 Blood Pressure 125/82 117/73 Pulse Oximetry 100 97 97 Oxygen Delivery 07/26/25 14:47 07/26/25 15:03 07/26/25 15:15 Temperature 97.9 F Pulse Rate 78 78 72 Respiratory Rate 16 16 18 Blood Pressure 117/73 Pulse Oximetry 99 100 99 Oxygen Delivery Room Air 07/26/25 16:37 07/26/25 17:30 07/26/25 18:00 Temperature 98.6 F Pulse Rate 84 71 Respiratory Rate 18 16 Blood Pressure 118/74 166/90 H 151/77 H Pulse Oximetry 100 98 Oxygen Delivery 07/26/25 18:00 07/26/25 18:33 07/26/25 18:33 Temperature Pulse Rate 76 Respiratory Rate Blood Pressure 137/88 151/94 H Pulse Oximetry Oxygen Delivery 07/26/25 20:00 07/26/25 20:00 07/26/25 20:00 Temperature 98.4 F 98.4 F Pulse Rate 72 67 68 Respiratory Rate 14 14 Blood Pressure 138/79 132/79 Pulse Oximetry 100 98 Oxygen Delivery 07/26/25 20:00 07/26/25 20:31 07/26/25 20:32 Temperature 98.4 F 98.4 F Pulse Rate 78 77 Respiratory Rate 16 16 Blood Pressure 138/77 161/99 H Pulse Oximetry 100 100 Oxygen Delivery Room Air 07/26/25 22:00 07/27/25 00:00 07/27/25 00:00 Temperature 97.9 F Pulse Rate 84 69 66 Respiratory Rate 14 Blood Pressure 138/86 Pulse Oximetry 98 Oxygen Delivery 07/27/25 00:00 07/27/25 02:00 07/27/25 04:00 Temperature Pulse Rate 84 61 Respiratory Rate Blood Pressure Pulse Oximetry Oxygen Delivery Room Air 07/27/25 04:00 07/27/25 04:00 07/27/25 06:00 Temperature 97.9 F Pulse Rate 58 L 57 L Respiratory Rate 14 Blood Pressure 138/80 Pulse Oximetry 100 Oxygen Delivery Room Air 07/27/25 08:00 07/27/25 08:00 07/27/25 08:04 Temperature 97.6 F 97.6 F Pulse Rate 70 70 Respiratory Rate 16 16 Blood Pressure 149/84 H 149/84 H Pulse Oximetry 99 99 98 Oxygen Delivery Room Air 07/27/25 08:21 07/27/25 08:21 Temperature 97.6 F Pulse Rate 70 Respiratory Rate 16 Blood Pressure 129/77 144/82 H Pulse Oximetry 99 Oxygen Delivery Intake/Output Intake/Output: Intake & Output 07/24/25 07/25/25 07/26/25 07/27/25 23:59 23:59 23:59 23:59 Intake Total 240 1050 Output Total 960 Balance 240 90 Meds/Results Medications: Active Medications Generic Name Dose Route Start Last Admin Trade Name Freq PRN Reason Stop Dose Admin Acetaminophen 650 mg 07/26/25 15:49 Acetaminophen 325 Mg Tablet PO Q4H PRN Mild Pain (1-3) or Fever Sodium Chloride 1,000 mls @ 100 mls/hr 07/26/25 16:05 07/27/25 02:58 Sodium Chloride 0.45% IV CONT 100 mls/hr .Q10H SVETA Administration Radiology Results: ITS Impressions Head CT 07/26/25 15:04 Impression: 1.No acute intracranial abnormality. Chest X-Ray 07/26/25 15:07 Impression: No acute cardiopulmonary abnormality. Labs Labs: Laboratory Results - last 24 hr 07/26/25 07/26/25 07/27/25 14:48 15:34 03:47 WBC 8.8 5.7 RBC 4.28 L 4.08 L Hgb 12.4 L 11.9 L Hct 34.5 L 34.0 L MCV 80.6 83.3 MCH 29.0 29.2 MCHC 35.9 35.0 RDW 13.8 14.0 Plt Count 144 L 118 L MPV 12.2 H 12.5 H Immature Gran % (Auto) 0.3 0.3 Neut % (Auto) 82.2 H 60.7 Lymph % (Auto) 11.1 L 26.4 [place] % (Auto) 5.7 10.0 H Eos % (Auto) 0.5 2.4 Baso % (Auto) 0.2 0.2 Lymph # (Auto) 0.98 1.51 [place] # (Auto) 0.5 0.6 Eos # (Auto) 0.0 0.1 Baso # (Auto) 0.0 0.0 Abs Immat Gran (auto) 0.03 0.02 Absolute Neuts (auto) 7.3 H 3.5 Absolute Nucleated RBC 0.000 0.000 Nucleated RBC % 0.0 0.0 PT 13.9 INR 1.1 APTT 24.6 Sodium 135 L 136 L Potassium 4.1 4.0 Chloride 103 108 H Carbon Dioxide 27 23 Anion Gap 5 5 BUN 20 15 D Creatinine 1.36 H 1.01 Estim Creat Clear Calc 50 64 Estimated GFR 51 L > 60 Glucose 99 92 Calcium 9.2 8.9 Total Bilirubin 0.4 AST 27 ALT 14 Alkaline Phosphatase 64 Total Creatine Kinase 174 H Troponin I < 0.012 Total Protein 7.6 Albumin 4.0 TSH 1.720 Urine Color Yellow Urine Appearance Clear Urine pH 5.5 Ur Specific [place] 1.021 Urine Protein Negative Urine Glucose (UA) Negative Urine Ketones Trace H Ur Blood (Man) Negative Urine Nitrate Negative Urine Bilirubin Negative Urine Urobilinogen 1.0 Leukocyte Esterase Rfl Negative Urine Opiates Screen Negative Urine Methadone Screen Negative Ur Barbiturates Screen Negative Ur Phencyclidine Scrn Negative Ur Amphetamine Screen Negative U Benzodiazepines Scrn Negative Urine Cocaine Screen Negative U Cannabinoids Screen Negative Quality VTE Prophylaxis VTE prophylaxis: mechanical ordered
--- NOTE | 2025-07-27 12:01 | P.DS_ITS ---
DS: Admitting Diagnosis Discharge Date 07/27/2025 Admitting Diagnosis Syncope DS: Discharge Diagnosis Discharge Diagnosis (1) Syncope: Code(s): R55 - Syncope and collapse Status: Acute Assessment and Plan: Please refer to hospital course for brief summary Could be due to increased dose of Viagra versus taking Viagra with hypertension medications Telemetry monitoring Fluid hydration Orthostatic vital signs (2) HTN (hypertension): Qualifiers: Hypertension type: primary hypertension Qualified Code(s): I10 - Essential (primary) hypertension Code(s): I10 - Essential (primary) hypertension Status: Acute Assessment and Plan: Hold amlodipine (3) Erectile dysfunction: Qualifiers: Erectile dysfunction type: unspecified Qualified Code(s): N52.9 - Male erectile dysfunction, unspecified Code(s): N52.9 - Male erectile dysfunction, unspecified Status: Acute Assessment and Plan: Patient educated not to take antihypertensives within a 4 hour window of Viagra DS: Summary Hospital Course Hospital Course: 74-year-old male past medical history of hypertension presents the hospital with syncope. Patient states that both him and his for of early in the decided to have intercourse so he took his Viagra. After that they had breakfast any took his blood pressure medication. Per the patient's he was sitting when he suddenly gotten sweats became unresponsive. Patient states a recently had his dose of Viagra increased. Patient currently denies any symptoms. Lab work in the ED shows hemoglobin of 12.4, sodium of 135 creatinine 1.36, GFR 51 CK 174, troponin negative, UA negative for infection. CT head negative for a cute process. Chest x-ray negative for acute process. EKG shows sinus rhythm. 07/27/2025: During the evaluation, the patient reports no history of cardiac disease or CVA. Patient reports that recently his Viagra dose has been increased from 50 mg to 100 mg. Yesterday morning, around 5:00 a.m., he took Viagra and amlodipine around 8:00 a.m.. After which, he experiences symptoms of sweating and near-syncope. Patient wants to be discharged today. I ordered a cardiac echocardiogram and a carotid ultrasound, but the patient prefers to be done as an outpatient. Advised the patient to follow up with Cardiology closely and if any concerning symptoms, return to the ED On the day of discharge, the patient was seen and examined. Vital signs were stable. Physical exam were stable and labs were reviewed at length. Discharge instructions, medications, and follow-up appointments were discussed with the patient at length and all day questions were answered. ER warnings were given. Status at Discharge Cognitive/behavioral status at discharge: Stable Time Spent with Patient Time attestation: Total time spent providing and/or coordinating discharge services: 45 minutes Exam Narrative: General: well appearing, appears stated age. HEENT: normocephalic, atraumatic. Mucous membranes moist. EOMI, PERRLA, bilateral sclera anicteric, no conjunctival injection. Neck supple without JVD, lymphadenopathy, or bruit. Respiratory: clear to ascultation bilaterally. No rales/rhonic/wheezes. Cardiovascular: Regular rate and rhythm, normal S1-S2 upon ascultation. No murmurs, rubs, or clicks. PMI is nondisplaced, capillary refill less than 3 second. Abdomen: Soft, round, no pulsatile masses, nondistended and nontender. No rebound, no guarding. No CVA tenderness, no hepatosplenomegaly. Bowel sounds present to all four quadrants. No high pitch or tinkling sounds, resonant to percussion. Extremities: No cyanosis, clubbing, or edema present. Pulses are palpable 2/2. Active ROM to all four extremities. Neuro: Alert and orientated x 4. PERRLA. Cranial nerves 2-12 intact without focal deficit. Skin: Warm, dry, and intact, without rash, erythema, or lesion. Psych: pleasant, cooperative, normal speech, normal affect, no hallucinations, no dysarthia DS: Data Data Completed and Pending Labs on day of discharge: Labs from last 24 hours 07/27/25 07/26/25 07/26/25 03:47 15:34 14:48 WBC 5.7 8.8 RBC 4.08 L 4.28 L Hgb 11.9 L 12.4 L Hct 34.0 L 34.5 L MCV 83.3 80.6 MCH 29.2 29.0 MCHC 35.0 35.9 RDW 14.0 13.8 Plt Count 118 L 144 L MPV 12.5 H 12.2 H Immature Gran % (Auto) 0.3 0.3 Neut % (Auto) 60.7 82.2 H Lymph % (Auto) 26.4 11.1 L [place] % (Auto) 10.0 H 5.7 Eos % (Auto) 2.4 0.5 Baso % (Auto) 0.2 0.2 Lymph # (Auto) 1.51 0.98 [place] # (Auto) 0.6 0.5 Eos # (Auto) 0.1 0.0 Baso # (Auto) 0.0 0.0 Abs Immat Gran (auto) 0.02 0.03 Absolute Neuts (auto) 3.5 7.3 H Absolute Nucleated RBC 0.000 0.000 Nucleated RBC % 0.0 0.0 PT 13.9 INR 1.1 APTT 24.6 Sodium 136 L 135 L Potassium 4.0 4.1 Chloride 108 H 103 Carbon Dioxide 23 27 Anion Gap 5 5 BUN 15 D 20 Creatinine 1.01 1.36 H Estim Creat Clear Calc 64 50 Estimated GFR > 60 51 L Glucose 92 99 Calcium 8.9 9.2 Total Bilirubin 0.4 AST 27 ALT 14 Alkaline Phosphatase 64 Total Creatine Kinase 174 H Troponin I < 0.012 Total Protein 7.6 Albumin 4.0 TSH 1.720 Urine Color Yellow Urine Appearance Clear Urine pH 5.5 Ur Specific [place] 1.021 Urine Protein Negative Urine Glucose (UA) Negative Urine Ketones Trace H Ur Blood (Man) Negative Urine Nitrate Negative Urine Bilirubin Negative Urine Urobilinogen 1.0 Leukocyte Esterase Rfl Negative Urine Opiates Screen Negative Urine Methadone Screen Negative Ur Barbiturates Screen Negative Ur Phencyclidine Scrn Negative Ur Amphetamine Screen Negative U Benzodiazepines Scrn Negative Urine Cocaine Screen Negative U Cannabinoids Screen Negative Imaging Radiologist's impression: ITS Impressions Head CT 07/26/25 15:04 Impression: 1.No acute intracranial abnormality. Chest X-Ray 07/26/25 15:07 Impression: No acute cardiopulmonary abnormality. Discharge Plan Discharge Attending physician on discharge: Kleber Bhandrai Discharging Clinician: Kleber Bhandari Anticipated Discharge Date/Time: 07/27/25 12:04 Patient Disposition: Home Activity: as tolerated Diet: heart healthy Discharge Instructions: Perform echocardiogram and carotid ultrasound as outpatient Follow-up with cardiology within a week upon discharge Do not take Viagra and other hypertensive medications within 4 hours. If any concerning symptoms please return to ED Check blood pressure 1 to 2 times a day. Record and bring into your doctor for review. Call your doctor if your blood pressure is greater than 180/110 or less than 90/45. Walk with cane or other assist device. Take precautions to avoid falls. Rise slowly from a lying or sitting position. Pause before standing or walking. Contact your doctor or call 911 and come to the Emergency Room if you have any type of trauma, lightheadedness with standing or other worrisome symptoms. Avoid NSAIDs (ibuprofen, naproxen, Aleve). Tylenol is safe to take. Follow-up with your primary care provider in 1-2 weeks. Please call for appointment. Thank you for using [facility] for your health care needs. Patient Instructions: Antibiotic Form, Amlodipine (By mouth), Sildenafil (By mouth) Patient Language: Jordanian Stand Alone Forms: General Discharge Information Follow-up/Referrals: Sunday Pierce MD [Primary Care Provider, Family Practice] Referral Note: Syncope follow-up. Advised echocardiogram and carotid ultrasound as outpatient Eusebio Lew MD [Physician, Cardiology] Referral Note: Syncope follow-up Discharge Medications: Continued sildenafil [Viagra] 100 mg tablet 100 mg PO DAILY PRN (Reason: sexual activity) Qty: 30 1RF Rx Instructions: administer 30 minutes to 4 hours before activity amlodipine 10 mg tablet 10 mg PO DAILY Qty: 90 3RF Date of admission: 07/26/25 15:50 Primary Care Provider: Sunday Pierce Admitting Provider: Seema Iniguez Attending physician on admission: Seema Iniguez Condition: Stable
--- NOTE | 2025-07-27 13:55 | PC.NURSE ---
pt left ambulatory with , pt has belongings and glasses, agrees with discharge plan
== END 2025-07-27 13:53 | disposition home or self-care (01) ==
LOC: ANHED 15:41 → ANHIMU 07-27 12:06
PROVIDERS: Nurse Practitioner Gerontology; Admitting Provider Student in an Organized Health Care Education/Training Program; Emergency Provider Emergency Medicine; PCP Family Medicine; Visit Provider General Practice
DX: R55 Syncope and collapse (principal); I10 Essential (primary) hypertension; N52.9 Male erectile dysfunction, unspecified; Z82.49 Family history of ischemic heart disease and other diseases of the circulatory system
CPT/HCPCS: 36415; 70450; 71045; 80048; 80053; 80307; 81003; 82550; 84443; 84484; 85025; 85610; 85730; 93005; 96360; 96361; 99285; G0378